=== PATIENT | male | born 1990 | race Caucasian/White ===

== ENCOUNTER 2017-03-12 20:16 | Emergency (ER) | payer OTHER ==
[~2017-03-12] VITALS: Ht 193 cm; Wt 102.1 kg
[~2017-03-12 20:16] MED LIST: DOK100 M1 PO; TRAMADOL50 MG PO; [UNRECOGNIZED DRUG - OTHER] PO
--- NOTE | 2017-03-12 21:43 | RADIOLOGY REPORT ---
EXAMINATION: XR ANKLE, LEFT X-RAY LEFT FIBULA AND LEFT TIBIA CLINICAL INFORMATION: Trauma, pain COMPARISON: None TECHNIQUE: AP, lateral, and mortise views of the left ankle an AP and lateral views of the left tibia and fibula were obtained. FINDINGS: Two acute linear nondisplaced fractures of the shaft of left fibula noted, about 5.6 cm apart are present. The lower fracture line is located about 9.6 cm above the lateral malleolus. Adjacent soft tissue swelling present. No other fractures or dislocations seen. The ankle mortise is normal and symmetric in appearance. IMPRESSION: Acute linear nondisplaced left fibular fractures.
[2017-03-12 22:19] VITALS: BP 122/62
[2017-03-12] MEDS ORDERED: OXYCODONE-ACET1 EACH PO (22:20)
[2017-03-12] MEDS ORDERED: IBUPROFEN400 M1 PO (22:20)
--- NOTE | 2017-03-12 22:21 | ED ANKLE/FOOT INJURY COMPLAINT ---
History of Present Illness General Chief Complaint: Lower Extremity Injury Stated Complaint: "PER PT LT FOOT INJURY" Source: patient Exam Limitations: language barrier Vital Signs & Intake/Output Vital Signs & Intake/Output Vital Signs Date Time Temp Pulse Resp B/P B/P Pulse O2 O2 Flow FiO2 Mean Ox Delivery Rate 03/129 100.2 91 18 122/62 99 Room Air 03/12 2052 98.6 03/12 2020 99.2 94 18 155/88 98 Room Air Allergies Coded Allergies: NO KNOWN ALLERGIES (04/30/16) Reconcile Medications Docusate Sodium (Colace) 100 MG TABLET 1 TAB PO Q6-8 PRN CONSTIPATION Magnesium Citrate (Citrate Of Magnesia) 300 ML SOLUTION 1 BOT PO DAILY PRN CONSTIPATION TRAMADOL HCL (Tramadol) 50 MG TABLET 1-2 TAB PO Q6P PRN PAIN Triage Note: PT TO TRIAGE WITH LEFT ANKLE/AGUILAR PAIN 8/10 S/P 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 ICE PACK PROVIDED. PT MEDICATED WITH MOTRIN 600MG PO IN TRIAGE. Triage Nurses Notes Reviewed? 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 HIS FOOT PLANTED AND HE TWISTED, NOW WITH LATERAL MALLEOLAR PAIN AND EDEMA WITH TENDERNESS, NO ERYTHEMA, SENSATION INTACT. UNABLE TO DWIGHT FOOT DUE TO PAIN. OTHERWISE NO COMPLAINTS. Past History Travel History Traveled to [place] past 21 day No Medical History Any Pertinent Medical History? 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 No Review of Systems Review of Systems Constitutional: Reports: no symptoms. EENTM: Reports: no symptoms. Respiratory: Reports: no symptoms. Cardiovascular: Reports: no symptoms. GI: Reports: no symptoms. Genitourinary: Reports: no symptoms. Musculoskeletal: Reports: see HPI. Skin: Reports: no symptoms. Neurological/Psychological: Reports: no symptoms. Hematologic/Endocrine: Reports: no symptoms. Immunologic/Allergic: Reports: no symptoms. All Other Systems: Reviewed and Negative Physical Exam Physical Exam General Appearance: well developed/nourished, no apparent distress Head: atraumatic, normal appearance Eyes: Bilateral: normal appearance. Ears, Nose, Throat: normal pharynx, normal ENT inspection Neck: normal inspection Cardiovascular/Respiratory: normal breath sounds, normal peripheral pulses, regular rate/rhythm Back: normal inspection, normal range of motion Leg/Knee/Thigh Left: normal range of motion, normal inspection Leg/Knee/Thigh Right: normal range of motion, normal inspection Ankle Left: evidence of injury, joint effusion, pain, swelling, tenderness Progress Differential Diagnosis: fracture, dislocation, sprain, contusion, compartmental syndrome Plan of Care: LEFT ANKLE X-RAY SHOWING DISTAL FIBULA FRACTURE. SPOKE WITH DR. HINKLE OF ORTHOPEDICS. WILL PLACE POSTERIOR SPLINT, REST, ICE, ELEVATION, CRUTCHES, MOTRIN AND PERCOCET FOR PAIN, OUTPATIENT FOLLOW UP WITH ORTHOPEDICS Diagnostic Imaging: Viewed by Me: Radiology Read. Discussed w/RAD: Radiology Read. Radiology Impression: PATIENT: STORMY PAUL PRESENT AGE: 27 PATIENT ACCOUNT NO: [id number] : 91 LOCATION: [facility] ORDERING PHYSICIAN: MINNA BURROUGHS SERVICE DATE: 03/12/17 EXAM TYPE: RAD - XRY- ANKLE 3 OR MORE VIEWS L; [id number], LEFT EXAMINATION: XR ANKLE, LEFT X- RAY LEFT FIBULA AND LEFT TIBIA CLINICAL INFORMATION: Trauma, pain COMPARISON: None TECHNIQUE: AP, lateral, and mortise views of the left ankle an AP and lateral views of the left tibia and fibula were obtained. FINDINGS: Two acute linear nondisplaced fractures of the shaft of left fibula noted, about 5.6 cm apart are present. The lower fracture line is located about 9.6 cm above the lateral malleolus. Adjacent soft tissue swelling present. No other fractures or dislocations seen. The ankle mortise is normal and symmetric in appearance. IMPRESSION: Acute linear nondisplaced left fibular fractures. DICTATED BY: LAM PERSAUD MD DATE/TIME DICTATED:03/12/172133 HEALTH TEACHER:SALMA DATE/TIME TRANSCRIBED:03/12/172133 CONFIDENTIAL, DO NOT COPY WITHOUT APPROPRIATE AUTHORIZATION. <Electronically signed in Other Vendor System> SIGNED BY: LAM PERSAUD MD 03/12/17 214 Departure Departure Time of Disposition: 2214 Disposition: HOME OR SELF CARE Condition: Stable Clinical Impression Primary Impression: Closed fracture of left distal fibula Secondary Impressions: High ankle sprain of left lower extremity Referrals: MICAH CASTAÑEDA,ADAM (PCP/Family) NORBERT HINKLE MD Additional Instructions: USE CRUTCHES TO WALK. DO NOT PUT WEIGHT ON YOUR LEFT LEG UNTIL YOU SEE THE ORTHOPEDIST. KEEP THE SPLINT ON YOUR LEG CLEAN AND DRY. IF YOU HAVE TO SHOWER, TAPE A GARBAGE BAG OVER YOUR LEG SO IT DOES NOT GET WET. IF YOU HAVE NUMBNESS OR CHANGE IN COLOR OF YOUR FOOT, COME BACK TO EMERGENCY ROOM. ELEVATE YOUR LEG OFTEN POSSIBLE. YOU CAN USE ICE TO REDUCE THE SWELLING. PLEASE FOLLOW UP WITH DR. HINKLE THIS WEEK. Departure Forms: Customer Survey General Discharge Information Prescriptions: Current Visit Scripts Oxycodone HCl/Acetaminophen (Oxycodone-Acetaminophen 5-325) 1 TAB PO TIDPRN #15 TAB Ibuprofen 1 TAB PO TID #30 TAB
== END 2017-03-12 22:35 ==
LOC: ERH 20:16
DX: S82.832A Other fracture of upper and lower end of left fibula, initial encounter for closed fracture (principal); S93.402A Sprain of unspecified ligament of left ankle, initial encounter; X58.XXXA Exposure to other specified factors, initial encounter; Y93.66 Activity, soccer; Y92.9 Unspecified place or not applicable
CPT/HCPCS: 73590-LT; 73610-LT

== ENCOUNTER 2018-01-24 21:29 | Emergency (ER) | payer OTHER ==
[~2018-01-24] VITALS: Ht 193 cm; Wt 97.5 kg
[~2018-01-24 21:29] MED LIST changes: +IBUPROFEN400 M1 PO; +OXYCODONE-ACET1 EACH PO
[2018-01-24 22:07] VITALS: BP 144/93
--- NOTE | 2018-01-24 22:48 | RADIOLOGY REPORT ---
EXAMINATION: XR FINGER, RIGHT CLINICAL INFORMATION: Rule out fracture versus sprain. COMPARISON: None TECHNIQUE: Three views of the right first digit. FINDINGS: No acute fracture or dislocation is seen. Bony mineralization is normal. The joint spaces are preserved. The soft tissues appear normal. IMPRESSION: No acute osseous traumatic findings. No discrete soft tissue abnormality.
--- NOTE | 2018-01-24 23:19 | ED HAND/WRIST INJURY COMPLAINT ---
History of Present Illness General Chief Complaint: Hand or Wrist Injury Stated Complaint: R THUMB INJURY Source: patient, old records Exam Limitations: no limitations Vital Signs & Intake/Output Vital Signs & Intake/Output Vital Signs Date Time Temp Pulse Resp B/P B/P Pulse O2 O2 Flow FiO2 Mean Ox Delivery Rate 01/24 2207 96.8 80 20 144/93 97 Room Air ED Intake and Output 01/25 0000 01/24 1200 Intake Total Output Total Balance Patient 215 lb Weight Allergies Coded Allergies: NO KNOWN ALLERGIES (04/30/16) Reconcile Medications Docusate Sodium (Colace) 100 MG TABLET 1 TAB PO Q6-8 PRN CONSTIPATION Ibuprofen 400 MG TABLET 1 TAB PO TID ANKLE FRACTURE Magnesium Citrate (Citrate Of Magnesia) 300 ML SOLUTION 1 BOT PO DAILY PRN CONSTIPATION Oxycodone HCl/Acetaminophen (Oxycodone-Acetaminophen 5-325) 5 MG-325 MG TABLET 1 TAB PO TIDPRN ANKLE FRACTURE TRAMADOL HCL (Tramadol) 50 MG TABLET 1-2 TAB PO Q6P PRN PAIN Triage Note: PT TO ED C/O RT THUMB PAIN 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 BRUISE NOTED UNDER RT THUMBNAIL. Triage Nurses Notes Reviewed? yes Occurred: just prior to arrival Duration: hour(s): (5), constant Timing: recent history Injury Environment: home Severity: moderate Severity Numbers: 6 Pain/Injury Location: Right: 1st finger. Context: blow Method of Injury: direct blow Modifying Factors: Improves With: rest. Worsens With: movement. 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 Injury occurred about 5 hours ago he presents with pain to the IP joint of the finger worse with range of motion. No numbness or tingling he is right-hand dominant. He denies any other hand finger or wrist pain he has not taken anything for his symptoms prior to arrival however was medicated with ibuprofen in triage with significant improvement. ([place] BURROUGHS,Carlos Eduardo) Past History Travel History Traveled to [place] past 21 day No Medical History Any Pertinent Medical History? 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 No (Carlos Eduardo Oliver) Review of Systems Review of Systems Constitutional: Reports: see HPI. Comments Review of systems: See HPI, All other systems negative. Constitutional, no chills no fever, HEENT: no sore throat no congestion Cardiovascular: No chest pain Skin: no rashes, no change in skin Respiratory: Nno cough Muscle skeletal: no back pain, no neck pain, Neurologic: , no headache Heme/endocrine: No bruising (Carlos Eduardo Oliver) Physical Exam Physical Exam General Appearance: well developed/nourished, no apparent distress, alert, awake , comfortable Hand Left: normal inspection, normal range of motion Hand Right: tender, 1st finger Comments: Well-developed well-nourished patient in no apparent distress. HEENT: Atraumatic, extraocular motion intact Neck: Supple, FROM Back: FROM Respiratory: No respiratory distress. Patient speaking in full complete sentences. Shoulder: Atraumatic/Stable. FROM . Elbow: Atraumatic/stable. FROM. No laxity Upper arm/Forearm: Atraumatic. Nontender. 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 Skin intact. FROM Pulses: Normal/equal radial pulses bilaterally. Brisk cap refill Neuro: awake, alert, and oriented to person, place and time. There were no obvious focal neurologic abnormalities. Skin: Warm & dry;No appreciable rash on exposed skin Psych: Mood affect normal, normal memory normal judgment. (Carlos Eduardo Oliver) Progress Differential Diagnosis: contusion, compartment syndrome, dislocation, fracture, sprain Plan of Care: I discussed with the patient plan of care it is a small subungual hematoma that I do not believe requires trephinization at this time. Finger splint applied I discussed with the patient his x-ray results he feels comfortable with plan I advised supportive care Tylenol rest ice cleared for discharge Diagnostic Imaging: Viewed by Me: Radiology Read. Discussed w/RAD: Radiology Read. Radiology Impression: PATIENT: STORMY PAUL PRESENT AGE: 27 PATIENT ACCOUNT NO: [id number] : 91 LOCATION: [facility] ORDERING PHYSICIAN: Bernardino Shelton DO (TBS) SERVICE DATE: 01/24/18 EXAM TYPE: RAD - XRY-FINGERS, RIGHT EXAMINATION: XR FINGER, RIGHT CLINICAL INFORMATION: Rule out fracture versus sprain. COMPARISON: None TECHNIQUE: Three views of the right first digit. FINDINGS: No acute fracture or dislocation is seen. Bony mineralization is normal. The joint spaces are preserved. The soft tissues appear normal. IMPRESSION: No acute osseous traumatic findings. No discrete soft tissue abnormality. DICTATED BY: Sean Mckeon MD DATE/TIME DICTATED:01/24/182242 LIBRARY CIRCULATION CLERK:SALMA DATE/TIME TRANSCRIBED:01/24/182242 CONFIDENTIAL, DO NOT COPY WITHOUT APPROPRIATE AUTHORIZATION. <Electronically signed in Other Vendor System> SIGNED BY: Sean Mckeon MD 01/24/182247 (Carlos Eduardo Oliver) Departure Departure Time of Disposition: 2322 Disposition: HOME OR SELF CARE Condition: Stable Clinical Impression Primary Impression: Finger contusion Secondary Impressions: Subungual hematoma Referrals: Aleyda Maynard MD (PCP/Family) Additional Instructions: Finger splint as discussed. Tylenol or Motrin for pain ice packs as needed. Follow-up with your primary care physician and return with any concerns. Departure Forms: Customer Survey General Discharge Information (Carlos Eduardo Oliver) PA/STATION INSPECTOR Co-Sign Statement Statement: ED Attending supervision documentation- [] I saw and evaluated the patient. I have also reviewed all the pertinent lab results and diagnostic results. I agree with the findings and the plan of care as documented in the PA's/STATION INSPECTOR's documentation. [x] I have reviewed the ED Record and agree with the PA's/STATION INSPECTOR's documentation. [] Additions or exceptions (if any) to the PAs/STATION INSPECTOR's note and plan are summarized below: [] (Anya CASTAÑEDA,Francisco Javier Nunez)
== END 2018-01-24 23:30 ==
LOC: ERH 21:29
DX: S60.011A Contusion of right thumb without damage to nail, initial encounter (principal); X58.XXXA Exposure to other specified factors, initial encounter; Y92.9 Unspecified place or not applicable; Y93.89 Activity, other specified; M79.644 Pain in right finger(s); I10 Essential (primary) hypertension; E11.9 Type 2 diabetes mellitus without complications
CPT/HCPCS: 73140-RT

== ENCOUNTER 2018-02-12 13:38 | Emergency (ER) | payer OTHER ==
[~2018-02-12] VITALS: Ht 193 cm; Wt 96.6 kg
[2018-02-12 13:40] VITALS: BP 153/87
--- NOTE | 2018-02-12 14:39 | ED SKIN/ALLERGY COMPLAINT ---
History of Present Illness General Chief Complaint: Skin Rash/ Abcess Stated Complaint: SKIN ABCESS Source: patient Exam Limitations: no limitations Vital Signs & Intake/Output Vital Signs & Intake/Output Vital Signs Date Time Temp Pulse Resp B/P B/P Pulse O2 O2 Flow FiO2 Mean Ox Delivery Rate 02/12 1340 98.8 83 18 153/87 98 Room Air Allergies Coded Allergies: NO KNOWN ALLERGIES (04/30/16) Reconcile Medications Docusate Sodium (Colace) 100 MG TABLET 1 TAB PO Q6-8 PRN CONSTIPATION Ibuprofen 400 MG TABLET 1 TAB PO TID ANKLE FRACTURE Magnesium Citrate (Citrate Of Magnesia) 300 ML SOLUTION 1 BOT PO DAILY PRN CONSTIPATION Oxycodone HCl/Acetaminophen (Oxycodone-Acetaminophen 5-325) 5 MG-325 MG TABLET 1 TAB PO TIDPRN ANKLE FRACTURE Sulfamethoxazole/Trimethoprim (Bactrim Ds Tablet) 800 MG-160 MG TABLET 1 TAB PO BID abscess TRAMADOL HCL (Tramadol) 50 MG TABLET 1-2 TAB PO Q6P PRN PAIN Triage Note: 28 YO MALE TO TRIAGE FOR EVAL OF ABCESS ON R SIDE OF FACE. Triage Nurses Notes Reviewed? yes Onset: Gradual Duration: week(s): Timing: recent history Severity: moderate HPI: 28yo male presents to ED complaining of painful lump to right jaw. Patient states that he has had a small lump in this area for about 1 year. Over the past 7 days he has had increasing size and increasing pain in this area. No recent injury or trauma to this area. No drainage. He denies sore throat, fever, ear pain. (Graciela Napier) Past History Travel History Traveled to [place] past 21 day No Medical History Any Pertinent Medical History? 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 No (Graciela Napier) Review of Systems Review of Systems Constitutional: Reports: no symptoms. EENTM: Reports: no symptoms. Respiratory: Reports: no symptoms. Cardiovascular: Reports: no symptoms. GI: Reports: no symptoms. Genitourinary: Reports: no symptoms. Musculoskeletal: Reports: no symptoms. Skin: Reports: see HPI. Neurological/Psychological: Reports: no symptoms. Hematologic/Endocrine: Reports: no symptoms. Immunologic/Allergic: Reports: no symptoms. All Other Systems: Reviewed and Negative (Graciela Napier) Physical Exam Physical Exam General Appearance: well developed/nourished, no apparent distress, alert, awake Head: atraumatic, right jaw: 2x1cm area of induration with fluctuance, MILD tenderness, no erythema Eyes: Bilateral: normal appearance. Ears, Nose, Throat: hearing grossly normal Neck: normal inspection, supple, full range of motion Respiratory: no respiratory distress Back: normal inspection, normal range of motion Extremities: normal inspection, normal range of motion Neurologic/Psych: awake, alert, oriented x 3 Skin: area of swelling to right jaw as described above (Graciela Napier) Progress Differential Diagnosis: abscess/cellulitis, allergic reaction, contact dermatitis, drug reaction, urticaria, lymph node swelling Plan of Care: Orders Procedure Date/time Status HEAD & NECK CULTURE 02/12 1521 Active Microbiology 02/12 1524 HEAD/NECK: Head/Neck Culture - RECD 02/12 1524 HEAD/NECK: Gram Stain - RECD Abscess was needle aspirated a small amount of purulent fluid drained. Given location on face patient was referred to plastics for further management of this abscess. Patient started on Bactrim antibiotics given purulence detected on exam. Patient is nontoxic appearing, no acute distress, vital signs are stable. Patient agrees with plan of care. The patient was seen and evaluated by Dr. Norman who agrees with plan. (Graciela Napier) Departure Departure Disposition: HOME OR SELF CARE Condition: Stable Clinical Impression Primary Impression: Abscess Referrals: Aleyda CASTAÑEDA,Aleyda (PCP/Family) Tang CASTAÑEDA,Keyur Additional Instructions: Follow-up with plastic surgeon regarding your abscess. Begin antibiotics today. Apply warm compresses twice daily to area. Return with worsening symptoms or concerns. Please note that there might be incidental findings in your evaluation that are unrelated to the current emergency department visit. Please notify your primary care doctor about this emergency department visit in order to obtain and review all of the testing performed so that these incidental findings can be monitored as needed. If you had an x-ray performed, please understand that some fractures may not be seen on the initial set of x-rays. If your symptoms persist you might need a repeat set of x-rays to check for such a fracture. If you had a laceration evaluated, please understand that foreign bodies such as glass or wood may not be visible to the naked eye or on plain x-rays. If the wound becomes red, swollen, increasingly more painful or if there is any drainage from the wound, please have it reevaluated by a physician for the possibility of a retained foreign body. If you're unable to follow up as outlined in the discharge instructions please return to the emergency department. Thank you for choosing the [facility] Emergency Department for your care. It was a pleasure to serve you today. Departure Forms: Customer Survey General Discharge Information Prescriptions: Current Visit Scripts Sulfamethoxazole/Trimethoprim (Bactrim Ds Tablet) 1 TAB PO BID #14 TAB (Rosanna BURROUGHS,Graciela Hart) PA/PHLEBOTOMY COORDINATOR Co-Sign Statement Statement: ED Attending supervision documentation- I saw and evaluated the patient. I have also reviewed all the pertinent lab results and diagnostic results. I agree with the findings and the plan of care as documented in the PA's/PHLEBOTOMY COORDINATOR's documentation. x I have reviewed the ED Record and agree with the PA's/PHLEBOTOMY COORDINATOR's documentation. [] Additions or exceptions (if any) to the PAs/PHLEBOTOMY COORDINATOR's note and plan are summarized below: [] (Giles CASTAÑEDA,Nick)
[2018-02-12] MEDS ORDERED: BACTRIM DS TAB1 EACH PO (15:25)
== END 2018-02-12 15:33 ==
LOC: ERH 13:38
DX: M27.2 Inflammatory conditions of jaws (principal)
CPT/HCPCS: 87070